=== PATIENT | male | born 1950 | race Two or more races ===

== ENCOUNTER 2021-09-27 01:49 | Inpatient (IN) | payer OTHER ==
[~2021-09-27] VITALS: Ht 170.2 cm; Wt 62.1 kg
[2021-09-27] MEDS ORDERED: methylPREDNISolone SOD SUCC 125 MG/2ML VIAL ONE (02:21)
[2021-09-27] MEDS ORDERED: VANCOMYCIN 1 GM VIAL ONE (02:22)
[2021-09-27] MEDS ORDERED: ALBUTEROL FS 2.5 MG/0.5 ML VIAL.NEB ONE (02:28)
[2021-09-27] MEDS ORDERED: IPRATROPIUM NEB FS 0.5 MG/2.5 ML AMPUL.NEB ONE (02:28)
[2021-09-27] MEDS ORDERED: ALBUTEROL FS 2.5 MG/3 ML VIAL.NEB NEB ONE (02:30)
[2021-09-27] MEDS ORDERED: IPRATROPIUM NEB FS 0.5 MG/2.5 ML AMPUL.NEB NEB ONE (02:30)
[2021-09-27] MEDS ORDERED: VANCOMYCIN 1 GM in IV D5W 250 ML IV ONE (02:30)
[2021-09-27] MEDS ORDERED: methylPREDNISolone SOD SUCC 125 MG/2ML VIAL IV ONE (02:30)
[2021-09-27 02:50] LABS: BASOPHILS # (AUTO) 0.2 K/uL (0.0-0.2); LYMPHOCYTES # (AUTO) 1.9 K/uL (0.8-4.8); NEUTROPHILS # (AUTO) 6.8 K/uL (1.8-8.9); WHITE BLOOD COUNT (AUTO) 11.4 K/uL (4.3-11.0)
[2021-09-27 03:26] LABS: CALCIUM, SERUM 8.3 mg/dL (8.5-10.1); CARBON DIOXIDE 25 mmol/L (21-32); CHLORIDE 105 mmol/L (98-107); CREATININE 0.9 mg/dL (0.6-1.3); GLUCOSE 95 mg/dL (74-106); POTASSIUM 3.6 mmol/L (3.5-5.1); SODIUM SERUM 141 mmol/L (136-145); UREA NITROGEN, BLOOD 13 mg/dL (7-18)
[2021-09-27 03:30] LABS: BASOPHILS % (AUTO) 1.9 % (0.0-2.0); EOSINOPHILS % (AUTO) 15.3 % (0.0-6.0); HEMATOCRIT 31 % (39-51); HEMOGLOBIN 9.6 g/dL (13.5-17.5); LYMPHOCYTES % (AUTO) 16.4 % (20.0-44.0); MEAN CORPUSCULAR HGB CONC 31 g/dl (31.0-36.0); MEAN CORPUSCULAR VOLUME 71 fL (80-96); MONOCYTES # (AUTO) 0.8 K/uL (0.1-1.30); MONOCYTES % (AUTO) 6.9 % (2.0-12.0); NEUTROPHILS % (AUTO) 59.5 % (43.0-81.0); PLATELET COUNT (AUTO) 432 K/uL (150-450); RED BLOOD CELL COUNT(AUTO) 4.41 MIL/uL (4.5-6.0)
[2021-09-27 03:47] LABS: ALANINE AMINOTRANSFERASE 26 U/L (12-78); ALBUMIN 3.4 g/dL (3.4-5.0); ALKALINE PHOSPHATASE 80 U/L (46-116); ASPARTATE AMINOTRANSFERASE 26 U/L (15-37); BILIRUBIN,DIRECT 0.1 mg/dL (0.0-0.2); BILIRUBIN,TOTAL 0.4 mg/dL (0.2-1.0); TOTAL PROTEIN, SERUM 7.5 g/dL (6.4-8.2)
[2021-09-27] MEDS ORDERED: IOHEXOL-350 100 ML VIAL IV ONE (04:39)
[2021-09-27] MEDS ORDERED: IV NS 0.9% 250 ML IV ONE (04:40)
[2021-09-27] MEDS ORDERED: LACT1CAP89 PO (07:24)
[2021-09-27] MEDS ORDERED: AMLO5TAB4 PO (07:24)
[2021-09-27] MEDS ORDERED: MULT-188 PO (07:24)
[2021-09-27] MEDS ORDERED: DOCU-141 PO (07:24)
[2021-09-27] MEDS ORDERED: ALBU8.5H8 IH (07:24)
[2021-09-27] MEDS ORDERED: ACET325T53 PO (07:24)
[2021-09-27 12:39] LABS: EOSINOPHILS % (MANUAL) 10 % (0-4); LYMPHOCYTES % (MANUAL) 18 % (16-48); MONOCYTES % (MANUAL) 8 % (0-11.0); NEUTROPHILS % (MANUAL) 64 (42-76)
[2021-09-27] MEDS ORDERED: ACETAMINOPHEN 325 MG TABLET PO PRN (22:30)
[2021-09-27] MEDS ORDERED: ALBUTEROL FS 2.5 MG/0.5 ML VIAL.NEB NEB PRN (22:30)
[2021-09-27] MEDS ORDERED: IPRATROPIUM NEB FS 0.5 MG/2.5 ML AMPUL.NEB NEB PRN (22:30)
[2021-09-27] MEDS ORDERED: VANCOMYCIN 1.25 GM in IV D5W 250 ML IV ONE (23:00)
[2021-09-28] MEDS ORDERED: CEFTRIAXONE 1GM BAG (ER ONLY) 50 ML IV ONE (00:54)
[2021-09-28] MEDS ORDERED: ENOXAPARIN SODIUM 40 MG/0.4 ML DISP.SYRIN SQ ONE (00:55)
[2021-09-28] MEDS: CEFTRIAXONE 1 G in IV D5W 50 ML IV SCH ×2 (01:00→21:55)
[2021-09-28] MEDS: ENOXAPARIN SODIUM 40 MG/0.4 ML DISP.SYRIN SQ SCH ×2 (01:00→21:55)
[2021-09-28] MEDS ORDERED: AZITHROMYCIN 500 MG VIAL ONE ×2 (01:23→22:21)
[2021-09-28] MEDS: AZITHROMYCIN 500 MG in IV D5W 250 ML IV SCH ×2 (01:30→23:10)
[2021-09-28] MEDS ORDERED: VANCOMYCIN 1 GM VIAL ONE (03:24)
[2021-09-28] MEDS ORDERED: methylPREDNISolone SOD SUCC 40 MG/ML VIAL ONE ×2 (04:55→12:24)
[2021-09-28] MEDS: methylPREDNISolone SOD SUCC 40 MG/ML VIAL IV SCH ×3 (04:59→21:54)
[2021-09-28 05:42] LABS: BASOPHILS % (AUTO) 0.2 % (0.0-2.0); EOSINOPHILS % (AUTO) 0.2 % (0.0-6.0); HEMATOCRIT 31 % (39-51); HEMOGLOBIN 9.4 g/dL (13.5-17.5); LYMPHOCYTES % (AUTO) 5.2 % (20.0-44.0); MEAN CORPUSCULAR HGB CONC 31 g/dl (31.0-36.0); MEAN CORPUSCULAR VOLUME 73 fL (80-96); MONOCYTES # (AUTO) 1.3 K/uL (0.1-1.30); NEUTROPHILS # (AUTO) 16.4 K/uL (1.8-8.9); NEUTROPHILS % (AUTO) 87.4 % (43.0-81.0); PLATELET COUNT (AUTO) 368 K/uL (150-450); RED BLOOD CELL COUNT(AUTO) 4.25 MIL/uL (4.5-6.0); WHITE BLOOD COUNT (AUTO) 18.7 K/uL (4.3-11.0)
[2021-09-28 06:06] LABS: CALCIUM, SERUM 8.1 mg/dL (8.5-10.1); CREATININE 0.9 mg/dL (0.6-1.3); POTASSIUM 3.1 mmol/L (3.5-5.1)
[2021-09-28] MEDS: MULTIVITAMINS,THERAGRAN 1 UDTAB TABLET PO SCH (10:00)
[2021-09-28] MEDS: POTASSIUM CHLORIDE 20 MEQ TAB.PRT.SR PO SCH ×2 (10:00→12:32)
[2021-09-28] MEDS: DOCUSATE SODIUM 100 MG CAPSULE PO SCH (10:00)
[2021-09-28] MEDS: AMLODIPINE BESYLATE 5 MG TABLET PO SCH (10:00)
[2021-09-28] MEDS: LACTOBACILLUS RHAMNOSUS GG 1 EACH CAP.SPRINK PO SCH (10:00)
[2021-09-28] MEDS ORDERED: AMLODIPINE BESYLATE 5 MG TABLET ONE (12:23)
[2021-09-28] MEDS ORDERED: POTASSIUM CHLORIDE 20 MEQ TAB.PRT.SR PO ONE ×2 (12:24→12:32)
[2021-09-28] MEDS ORDERED: DOCUSATE SODIUM 100 MG CAPSULE PO ONE (12:24)
[2021-09-28] MEDS ORDERED: MULTIVIT W/MINERALS 1 TAB TABLET ONE (12:25)
[2021-09-28] MEDS: VANCOMYCIN 1 GM in IV D5W 250 ML IV SCH (16:00)
[2021-09-28] MEDS ORDERED: CEFTRIAXONE 1 G VIAL ONE ×2 (21:28→22:22)
[2021-09-28] MEDS ORDERED: GUAIFENESIN LA 600 MG TABLET.SA PO ONE (22:02)
[2021-09-28] MEDS: GUAIFENESIN LA 600 MG TABLET.SA PO SCH (22:06)
[2021-09-29] VITALS: BP 140/80
[2021-09-29] MEDS ORDERED: VANCOMYCIN 1 GM VIAL ONE (01:43)
[2021-09-29] MEDS: VANCOMYCIN 1 GM in IV D5W 250 ML IV SCH (02:22)
[2021-09-29 04:00] VITALS: BP 119/74
[2021-09-29] MEDS: methylPREDNISolone SOD SUCC 40 MG/ML VIAL IV SCH ×2 (05:03→12:11)
[2021-09-29 08:00] VITALS: BP 139/80
[2021-09-29] MEDS: LACTOBACILLUS RHAMNOSUS GG 1 EACH CAP.SPRINK PO SCH (09:03)
[2021-09-29] MEDS: DOCUSATE SODIUM 100 MG CAPSULE PO SCH (09:04)
[2021-09-29] MEDS: MULTIVITAMINS,THERAGRAN 1 UDTAB TABLET PO SCH (09:04)
[2021-09-29] MEDS: GUAIFENESIN LA 600 MG TABLET.SA PO SCH (09:04)
[2021-09-29] MEDS: AMLODIPINE BESYLATE 5 MG TABLET PO SCH (09:04)
[2021-09-29 09:28] LABS: CALCIUM, SERUM 7.9 mg/dL (8.5-10.1); POTASSIUM 3.9 mmol/L (3.5-5.1)
[2021-09-29] MEDS ORDERED: AMOX-430 PO (11:40)
[2021-09-29 16:00] VITALS: BP 147/82
== END 2021-09-29 19:45 | DRG 202 ==
LOC: ER 01:54 → MEDSG1 19:20 → TRANSITION 09-28 00:29 → MEDSG2 09-28 19:50
PROVIDERS: ADMIT Internal Medicine; ATTEND Internal Medicine
DX: J20.9 Acute bronchitis, unspecified (principal); J44.0 Chronic obstructive pulmonary disease with (acute) lower respiratory infection; L03.116 Cellulitis of left lower limb; I10 Essential (primary) hypertension; Z20.822 Contact with and (suspected) exposure to COVID-19; K44.9 Diaphragmatic hernia without obstruction or gangrene
CPT/HCPCS: 36415; 71045-TC; 80048-TC; 80076-TC; 80202-TC; 83880; 84484-TC; 85025-TC; 85378-TC; 87040-TC; 87081-TC; 93970-TC; C9803; G0378; J0456; J0696; J1650; J2920; J2930; J3370; J7030; J7050; J7060; Q9967

== ENCOUNTER 2021-10-31 14:49 | Emergency (ER) | payer OTHER ==
[~2021-10-31] VITALS: Ht 167.6 cm; Wt 63.5 kg
[~2021-10-31 14:49] MED LIST: ACET325T53 PO; AMLO5TAB4 PO; AMOX-430 PO; DOCU-141 PO; LACT1CAP89 PO; MULT-188 PO
--- NOTE | 2021-10-31 15:02 | NUR ---
TO ER BED 12, C/O BIBPA FROM [facility] C/O LT HIP, LT WRIST & LT LEG PAIN -TRAUMA, CONNECTED TO MONITOR, AWAITING MD MAZARIEGOS
[2021-10-31] MEDS ORDERED: ACETAMINOPHEN ES 500 MG TABLET PO ONE (16:30)
[2021-10-31] MEDS ORDERED: CLINDAMYCIN HCL 150 MG CAPSULE PO ONE (16:30)
[2021-10-31] MEDS ORDERED: CLINDAMYCIN HCL 150 MG CAPSULE ONE (16:55)
[2021-10-31] MEDS ORDERED: ACETAMINOPHEN ES 500 MG TABLET ONE (16:55)
[2021-10-31] MEDS ORDERED: CLIN300C12 PO (17:11)
--- NOTE | 2021-10-31 17:39 | NUR ---
[facility] TRANS PORT IS AT 1900
--- NOTE | 2021-10-31 19:37 | NUR ---
Written and verbal after care instructions given. Patient verbalizes understanding of instruction. VSS
--- NOTE | 2021-10-31 20:17 | NUR ---
REPORT GIVEN TO EMS AT BEDSIDE
[2021-10-31 22:16] VITALS: BP 131/70
== END 2021-10-31 20:20 | disposition home or self-care (01) ==
LOC: ER 14:51
DX: M16.12 Unilateral primary osteoarthritis, left hip (principal); L03.116 Cellulitis of left lower limb; R60.0 Localized edema; I10 Essential (primary) hypertension; J44.9 Chronic obstructive pulmonary disease, unspecified; Z79.1 Long term (current) use of non-steroidal anti-inflammatories (NSAID); Z79.899 Other long term (current) drug therapy
CPT/HCPCS: 73110; 73502

== ENCOUNTER 2021-12-01 09:01 | Emergency (ER) | payer OTHER ==
[~2021-12-01] VITALS: Ht 167.6 cm; Wt 63.0 kg
[~2021-12-01 09:01] MED LIST changes: +CLIN300C12 PO
--- NOTE | 2021-12-01 09:05 | NUR ---
BIBA THIS 71YO MALE PATIENT PER ARTHUR WITH CC OF SOB, WHEEZING AND COUGHING WITH WHITISH SPUTUM. PLACED COMFORTABLY ON BED. VITALS CHECKED. PT ALERT, ORIENTED X4.
--- NOTE | 2021-12-01 09:05 | NUR ---
EKG DONE AT BEDSIDE
--- NOTE | 2021-12-01 09:06 | NUR ---
SEEN BY DR GUILLERMO AT BEDSIDE
--- NOTE | 2021-12-01 09:10 | NUR ---
IV CANNULA G18 INSERTED LEFT AC, BLOOD DRAWN AND SENT TO CONTRACT DRIVER
[2021-12-01] MEDS ORDERED: ALBUTEROL FS 2.5 MG/0.5 ML VIAL.NEB ONE ×3 (09:11→13:45)
--- NOTE | 2021-12-01 09:20 | NUR ---
PT HAS TIGHT AIR ENTRY ON BOTH LUNGS + WHEEZING. RT NEBULIZED PATIENT AND PUT PATIENT IN OXYGEN
[2021-12-01] MEDS ORDERED: MULT-24 PO (09:24)
[2021-12-01] MEDS ORDERED: LACT1CAP71 PO (09:24)
--- NOTE | 2021-12-01 09:25 | NUR ---
COVID SWAB DONE
[2021-12-01] MEDS ORDERED: ALBU8.5H8 IH (09:27)
[2021-12-01] MEDS ORDERED: ALBUTEROL FS 2.5 MG/0.5 ML VIAL.NEB NEB ONE ×2 (09:30→12:00)
[2021-12-01 09:36] LABS: BASOPHILS # (AUTO) 0.2 K/uL (0.0-0.2); BASOPHILS % (AUTO) 2.9 % (0.0-2.0); EOSINOPHILS % (AUTO) 20.1 % (0.0-6.0); HEMATOCRIT 34 % (39-51); HEMOGLOBIN 10.4 g/dL (13.5-17.5); LYMPHOCYTES # (AUTO) 1.7 K/uL (0.8-4.8); LYMPHOCYTES % (AUTO) 19.8 % (20.0-44.0); MEAN CORPUSCULAR HGB CONC 31 g/dl (31.0-36.0); MEAN CORPUSCULAR VOLUME 70 fL (80-96); MONOCYTES # (AUTO) 0.8 K/uL (0.1-1.30); MONOCYTES % (AUTO) 9.1 % (2.0-12.0); NEUTROPHILS # (AUTO) 4.2 K/uL (1.8-8.9); NEUTROPHILS % (AUTO) 48.1 % (43.0-81.0); PLATELET COUNT (AUTO) 453 K/uL (150-450); RED BLOOD CELL COUNT(AUTO) 4.82 MIL/uL (4.5-6.0); WHITE BLOOD COUNT (AUTO) 8.7 K/uL (4.3-11.0)
--- NOTE | 2021-12-01 09:45 | NUR ---
Jarrod schumacher in ED - 12/01/21 at 1105 by DESTINI CALLED [facility] REGARDING PT ADMISSION STATUS. WAS NOTIFIED THAT THE PT'S CLINICALS WERE SENT TO [facility] AND AWAITING FEEDBACK FROM CHARGE NURSE
[2021-12-01 10:01] LABS: CALCIUM, SERUM 8.8 mg/dL (8.5-10.1); CARBON DIOXIDE 28 mmol/L (21-32); CHLORIDE 104 mmol/L (98-107); CREATININE 0.8 mg/dL (0.6-1.3); GLUCOSE 104 mg/dL (74-106); POTASSIUM 4.4 mmol/L (3.5-5.1); SODIUM SERUM 139 mmol/L (136-145); UREA NITROGEN, BLOOD 16 mg/dL (7-18)
--- NOTE | 2021-12-01 10:02 | NUR ---
CXR DONE AT BEDSIDE
--- NOTE | 2021-12-01 10:08 | NUR ---
SPOKE TO NELIDA WILSON
[2021-12-01 10:12] LABS: BASOPHILS % (MANUAL) 1 % (0.0-2.0); EOSINOPHILS % (MANUAL) 24 % (0-4); LYMPHOCYTES % (MANUAL) 27 % (16-48); MONOCYTES % (MANUAL) 8 % (0-11.0); NEUTROPHILS % (MANUAL) 40 (42-76)
--- NOTE | 2021-12-01 10:12 | NUR ---
[facility] TEL# [phone] FAX# [phone]
[2021-12-01 10:16] LABS: ALANINE AMINOTRANSFERASE 29 U/L (12-78); ALBUMIN 3.5 g/dL (3.4-5.0); ALKALINE PHOSPHATASE 79 U/L (46-116); ASPARTATE AMINOTRANSFERASE 23 U/L (15-37); BILIRUBIN,DIRECT 0.1 mg/dL (0.0-0.2); BILIRUBIN,TOTAL 0.4 mg/dL (0.2-1.0); TOTAL PROTEIN, SERUM 7.5 g/dL (6.4-8.2)
--- NOTE | 2021-12-01 11:30 | NUR ---
NOVEL GAVIRIA SWAB PCR SENT TO LAB
[2021-12-01] MEDS ORDERED: methylPREDNISolone SOD SUCC 125 MG/2ML VIAL IV ONE (12:00)
[2021-12-01] MEDS ORDERED: LEVOFLOXACIN 750 MG /D5W 150ML PIGGYBACK IV ONE (12:00)
--- NOTE | 2021-12-01 12:17 | NUR ---
URINE SPECIMEN GIVEN TO THEATRE DIRECTOR
[2021-12-01] MEDS ORDERED: methylPREDNISolone SOD SUCC 125 MG/2ML VIAL ONE (12:20)
[2021-12-01] MEDS ORDERED: LEVOFLOXACIN 750 MG /D5W 150ML 150 ML IV ONE (12:20)
[2021-12-01 12:51] LABS: BILIRUBIN,URINE NEGATIVE (NEGATIVE); COLOR,URINE YELLOW (YELLOW); LEUKOCYTE ESTERASE ,URINE NEGATIVE (NEGATIVE); NITRITE, URINE NEGATIVE (NEGATIVE); PH,URINE 7.5 (5.0-8.0); PROTEIN,URINE NEGATIVE (NEGATIVE); UGLUCOSE NEGATIVE (NEGATIVE); UROBILINOGEN,URINE 0.2 EU/dL (0.2)
[2021-12-01 13:03] LABS: BACTERIA,URINE None seen /HPF (None Seen); RBC,URINE 0-2 /HPF (0-2); SQUAMOUS EPITHELIAL CELL,UR Rare /HPF (None Seen); WBC,URINE 0-2 /HPF (0-3)
--- NOTE | 2021-12-01 13:29 | NUR ---
CALL FROM [facility], GOING TO [facility] ROOM 608,REPORT TO [phone]
[2021-12-01 13:30] VITALS: BP 159/101
--- NOTE | 2021-12-01 13:30 | NUR ---
CALLED [facility] AND SET UP BLS TRANSPORT ETA 1400
--- NOTE | 2021-12-01 14:00 | NUR ---
REPORT GIVEN TO [facility] TECH JULIA ([address]) RUN #[id number]. PATIENT WILL BE GOING TO [facility] RM 608. ENDORSEMENT DONE TO NURSE RAY. PATIENT WAS ALERT, ORIENTED X4. TRANSFERRED VIA GURNEY ON RA AT 96%.
== END 2021-12-01 14:18 | disposition short-term general hospital (02) ==
LOC: ER 09:02
DX: J44.0 Chronic obstructive pulmonary disease with (acute) lower respiratory infection (principal); J20.9 Acute bronchitis, unspecified; Z20.822 Contact with and (suspected) exposure to COVID-19; I10 Essential (primary) hypertension; R60.0 Localized edema; L03.116 Cellulitis of left lower limb; L03.115 Cellulitis of right lower limb
CPT/HCPCS: 36415; 71045; 80048; 80076; 81001; 83605; 83880; 84145; 84484 ×3; 85007; 85025; 85730; 86850; 87040 ×2; 87086; 87426; 93005; 94640 ×3; 94799; 96365; 96375; 99285; J1956; J2930; C9803; U0003

== ENCOUNTER 2022-01-10 07:39 | Emergency (ER) | payer OTHER ==
[~2022-01-10] VITALS: Ht 167.6 cm; Wt 48.1 kg
[~2022-01-10 07:39] MED LIST changes: +ALBU8.5H8 IH; -AMOX-430 PO; -CLIN300C12 PO; +LACT1CAP71 PO; -LACT1CAP89 PO; -MULT-188 PO; +MULT-24 PO
[2022-01-10] MEDS ORDERED: methylPREDNISolone SOD SUCC 125 MG/2ML VIAL ONE (08:07)
[2022-01-10] MEDS ORDERED: IPRATROPIUM NEB FS 0.5 MG/2.5 ML AMPUL.NEB ONE (08:24)
[2022-01-10] MEDS ORDERED: ALBUTEROL FS 2.5 MG/3 ML VIAL.NEB ONE (08:24)
[2022-01-10] MEDS ORDERED: ALBUTEROL FS 2.5 MG/3 ML VIAL.NEB CONTNEB ONE (08:30)
[2022-01-10] MEDS ORDERED: methylPREDNISolone SOD SUCC 125 MG/2ML VIAL IV ONE (08:30)
[2022-01-10] MEDS ORDERED: IPRATROPIUM NEB FS 0.5 MG/2.5 ML AMPUL.NEB NEB ONE (08:30)
[2022-01-10 08:31] LABS: BASOPHILS # (AUTO) 0.2 K/uL (0.0-0.2); EOSINOPHILS % (AUTO) 6.3 % (0.0-6.0); HEMATOCRIT 36 % (39-51); LYMPHOCYTES # (AUTO) 1.1 K/uL (0.8-4.8); LYMPHOCYTES % (AUTO) 11.7 % (20.0-44.0); MEAN CORPUSCULAR HGB CONC 31 g/dl (31.0-36.0); MEAN CORPUSCULAR VOLUME 73 fL (80-96); MONOCYTES # (AUTO) 0.9 K/uL (0.1-1.30); MONOCYTES % (AUTO) 10.4 % (2.0-12.0); NEUTROPHILS # (AUTO) 6.3 K/uL (1.8-8.9); NEUTROPHILS % (AUTO) 69.6 % (43.0-81.0); PLATELET COUNT (AUTO) 347 K/uL (150-450); RED BLOOD CELL COUNT(AUTO) 4.93 MIL/uL (4.5-6.0); WHITE BLOOD COUNT (AUTO) 9.1 K/uL (4.3-11.0)
[2022-01-10 08:58] LABS: ALANINE AMINOTRANSFERASE 21 U/L (12-78); ALBUMIN 3.8 g/dL (3.4-5.0); ALKALINE PHOSPHATASE 88 U/L (46-116); ASPARTATE AMINOTRANSFERASE 17 U/L (15-37); BILIRUBIN,DIRECT 0.1 mg/dL (0.0-0.2); BILIRUBIN,TOTAL 0.3 mg/dL (0.2-1.0); CALCIUM, SERUM 8.8 mg/dL (8.5-10.1); CARBON DIOXIDE 25 mmol/L (21-32); CHLORIDE 108 mmol/L (98-107); GLUCOSE 113 mg/dL (74-106); POTASSIUM 4.1 mmol/L (3.5-5.1); SODIUM SERUM 144 mmol/L (136-145); TOTAL PROTEIN, SERUM 7.6 g/dL (6.4-8.2); UREA NITROGEN, BLOOD 19 mg/dL (7-18)
[2022-01-10] MEDS ORDERED: ALBU18HF2 INH (10:25)
[2022-01-10] MEDS ORDERED: PRED20TA PO (10:25)
[2022-01-10 10:52] LABS: BAND % (MANUAL) 2 % (0.0-5.0); EOSINOPHILS % (MANUAL) 5 % (0-4); LYMPHOCYTES % (MANUAL) 7 % (16-48); MONOCYTES % (MANUAL) 8 % (0-11.0); NEUTROPHILS % (MANUAL) 78 (42-76)
[2022-01-10 12:14] VITALS: BP 121/90
== END 2022-01-10 12:32 ==
LOC: ER 07:44
DX: J44.9 Chronic obstructive pulmonary disease, unspecified (principal); R60.0 Localized edema; Z20.822 Contact with and (suspected) exposure to COVID-19; D50.9 Iron deficiency anemia, unspecified; Z79.899 Other long term (current) drug therapy; I10 Essential (primary) hypertension
CPT/HCPCS: 36415; 71045; 80048; 80076; 83880; 84484; 85007; 85025; 87426; 93005; 93970; 94644; 96374; 99285; J2930; C9803

== ENCOUNTER 2022-01-11 00:25 | Emergency (ER) | payer OTHER ==
[~2022-01-11] VITALS: Ht 170.2 cm; Wt 65.8 kg
[~2022-01-11 00:25] MED LIST changes: +ALBU18HF2 INH; +PRED20TA PO
--- NOTE | 2022-01-11 00:30 | NUR ---
ECPSC196 FROM HOME C/O SOB WITH COUGH AND MUCUS X1DAY. 1NEB TX GIVEN CLASSROOM AIDE WITH SOME RELIEF. PT A/OX3 TOLERATING R/A WELL WITH NO SOB
--- NOTE | 2022-01-11 00:37 | NUR ---
DR. LAW MURPHY AT PT'S BEDSIDE
--- NOTE | 2022-01-11 00:45 | NUR ---
PUBLIC ADDRESS ANNOUNCER AT PT'S BEDSIDE
[2022-01-11] MEDS ORDERED: Magnesium 1GM/D5W 100ML PREMIX 100 ML IV ONE (01:05)
[2022-01-11] MEDS ORDERED: methylPREDNISolone SOD SUCC 125 MG/2ML VIAL ONE (01:05)
[2022-01-11 01:19] LABS: BASOPHILS % (AUTO) 0.2 % (0.0-2.0); HEMATOCRIT 34 % (39-51); HEMOGLOBIN 10.5 g/dL (13.5-17.5); LYMPHOCYTES # (AUTO) 0.6 K/uL (0.8-4.8); LYMPHOCYTES % (AUTO) 9.8 % (20.0-44.0); MEAN CORPUSCULAR HGB CONC 31 g/dl (31.0-36.0); MEAN CORPUSCULAR VOLUME 72 fL (80-96); MONOCYTES # (AUTO) 0.3 K/uL (0.1-1.30); MONOCYTES % (AUTO) 4.3 % (2.0-12.0); NEUTROPHILS # (AUTO) 5.7 K/uL (1.8-8.9); NEUTROPHILS % (AUTO) 85.7 % (43.0-81.0); PLATELET COUNT (AUTO) 338 K/uL (150-450); RED BLOOD CELL COUNT(AUTO) 4.63 MIL/uL (4.5-6.0); WHITE BLOOD COUNT (AUTO) 6.6 K/uL (4.3-11.0)
--- NOTE | 2022-01-11 01:23 | NUR ---
RFA #18G S/L; PATENT AND INTACT. BLOOD COLLECTED AND SEND TO LAB
--- NOTE | 2022-01-11 01:24 | NUR ---
RT CALLED FOR BREATHING TX
[2022-01-11 01:30] LABS: CALCIUM, SERUM 8.8 mg/dL (8.5-10.1); CARBON DIOXIDE 22 mmol/L (21-32); CHLORIDE 106 mmol/L (98-107); CREATININE 1.1 mg/dL (0.6-1.3); GLUCOSE 161 mg/dL (74-106); POTASSIUM 3.9 mmol/L (3.5-5.1); SODIUM SERUM 141 mmol/L (136-145); UREA NITROGEN, BLOOD 30 mg/dL (7-18)
[2022-01-11] MEDS ORDERED: ALBUTEROL FS 2.5 MG/3 ML VIAL.NEB NEB ONE (01:30)
[2022-01-11] MEDS ORDERED: methylPREDNISolone SOD SUCC 125 MG/2ML VIAL IV ONE (01:30)
[2022-01-11] MEDS ORDERED: Magnesium 1GM/D5W 100ML PREMIX 200 ML IV ONE (01:30)
[2022-01-11] MEDS ORDERED: ALBUTEROL FS 2.5 MG/3 ML VIAL.NEB ONE (01:30)
[2022-01-11] MEDS ORDERED: IV NS 0.9% 1,000 ML BAG IV ONE (01:30)
[2022-01-11] MEDS ORDERED: IPRATROPIUM NEB FS 0.5 MG/2.5 ML AMPUL.NEB NEB ONE (01:30)
[2022-01-11] MEDS ORDERED: IPRATROPIUM NEB FS 0.5 MG/2.5 ML AMPUL.NEB ONE (01:30)
--- NOTE | 2022-01-11 01:31 | NUR ---
RT AT BEDSIDE
--- NOTE | 2022-01-11 01:43 | NUR ---
RT ER CALLED FOR NEB TX, TX GIVEN WITH NO ADVERSE REACTIONS NOTED.
--- NOTE | 2022-01-11 02:20 | NUR ---
COVID SWAB COLLECTED AND SENT TO LAB
--- NOTE | 2022-01-11 04:42 | NUR ---
PT ACCEPTED TO [facility] BED [address]. ADMITTING DR. AUGUSTINE REPORT NUMBER [phone]
--- NOTE | 2022-01-11 05:03 | NUR ---
REPORT GIVEN TO FELIPA WALKER FROM [facility] FOR [facility]
[2022-01-11 07:07] LABS: LYMPHOCYTES % (MANUAL) 8 % (16-48); MONOCYTES % (MANUAL) 4 % (0-11.0); NEUTROPHILS % (MANUAL) 88 (42-76)
[2022-01-11 07:15] VITALS: BP 147/88
--- NOTE | 2022-01-11 07:20 | NUR ---
[facility] AT BEDSIDE FOR TRANSPORT TO [facility] IN STABLE CONDITION. NAD NOTED. PT LEFT WITH 2 EMT AND REPORT GIVEN.
== END 2022-01-11 07:47 | disposition short-term general hospital (02) ==
LOC: ER 00:34
DX: J44.1 Chronic obstructive pulmonary disease with (acute) exacerbation (principal); R06.09 Other forms of dyspnea; Z20.822 Contact with and (suspected) exposure to COVID-19; I10 Essential (primary) hypertension; R60.0 Localized edema
CPT/HCPCS: 36415; 71045; 80048; 85007; 85025; 87426; 94640; 96365; 96375; 99291; J2930; J3475; J7030; C9803

== ENCOUNTER 2022-11-22 06:24 | Emergency (ER) | payer OTHER ==
[~2022-11-22] VITALS: Ht 170.2 cm; Wt 65.8 kg
[2022-11-22] MEDS ORDERED: LORATADINE 10 MG TABLET ONE (06:50)
[2022-11-22] MEDS ORDERED: predniSONE 20 MG TABLET ONE (06:50)
--- NOTE | 2022-11-22 06:57 | NUR ---
BIBRA 60 FROM [facility] C/O COUGH AND FEELING SICK FOR THE PAST DAY. AWAKE AND ALERT BREATHING UNLABORED. V/S WNL 98% RA.
[2022-11-22] MEDS ORDERED: predniSONE 20 MG TABLET PO ONE (07:00)
[2022-11-22] MEDS ORDERED: ALBUTEROL FS 2.5 MG/3 ML VIAL.NEB CONTNEB ONE (07:00)
[2022-11-22] MEDS ORDERED: LORATADINE 10 MG TABLET PO SCH (07:00)
[2022-11-22] MEDS ORDERED: IPRATROPIUM NEB FS 0.5 MG/2.5 ML AMPUL.NEB NEB ONE (07:00)
[2022-11-22] MEDS ORDERED: ALBUTEROL FS 2.5 MG/3 ML VIAL.NEB ONE (07:02)
[2022-11-22] MEDS ORDERED: IPRATROPIUM NEB FS 0.5 MG/2.5 ML AMPUL.NEB ONE (07:02)
[2022-11-22 07:14] LABS: BASOPHILS # (AUTO) 0.1 K/uL (0.0-0.2); HEMATOCRIT 37 % (39-51); HEMOGLOBIN 11.6 g/dL (13.5-17.5); LYMPHOCYTES # (AUTO) 1.1 K/uL (0.8-4.8); LYMPHOCYTES % (AUTO) 13.7 % (20.0-44.0); MEAN CORPUSCULAR HGB CONC 32 g/dl (31.0-36.0); MEAN CORPUSCULAR VOLUME 81 fL (80-96); MONOCYTES # (AUTO) 0.8 K/uL (0.1-1.30); MONOCYTES % (AUTO) 9.3 % (2.0-12.0); NEUTROPHILS # (AUTO) 5.2 K/uL (1.8-8.9); PLATELET COUNT (AUTO) 273 K/uL (150-450); RED BLOOD CELL COUNT(AUTO) 4.52 MIL/uL (4.5-6.0); WHITE BLOOD COUNT (AUTO) 8.3 K/uL (4.3-11.0)
[2022-11-22 07:20] LABS: POTASSIUM 3.7 mmol/L (3.5-5.1)
[2022-11-22] MEDS ORDERED: LORA10TA68 PO (08:01)
[2022-11-22] MEDS ORDERED: PRED50TA PO (08:01)
--- NOTE | 2022-11-22 08:10 | NUR ---
CALLED [facility] FOR TRANSPORT ETA 60 MINS.
--- NOTE | 2022-11-22 09:08 | NUR ---
[facility] AT BEDSIDE FOR PICKUP.
--- NOTE | 2022-11-22 09:16 | NUR ---
Patient discharged to facility in stable condition via [facility]. Written and verbal after care instructions given. Patient verbalizes understanding of instruction.
[2022-11-22 09:17] VITALS: BP 118/68
== END 2022-11-22 09:18 ==
LOC: ER 06:27
DX: J06.9 Acute upper respiratory infection, unspecified (principal); J44.1 Chronic obstructive pulmonary disease with (acute) exacerbation; R05.9 Cough, unspecified; R09.81 Nasal congestion; I10 Essential (primary) hypertension; Z20.822 Contact with and (suspected) exposure to COVID-19; Z79.51 Long term (current) use of inhaled steroids; Z79.899 Other long term (current) drug therapy
CPT/HCPCS: 99285; 71045; 87426; 85025; 80048; 36415; 94640; J7512; C9803

== ENCOUNTER 2023-02-11 05:25 | Inpatient (IN) | payer OTHER ==
[~2023-02-11] VITALS: Ht 167.6 cm; Wt 66.2 kg
[~2023-02-11 05:25] MED LIST changes: +LORA10TA68 PO; +PRED50TA PO
[2023-02-11] MEDS ORDERED: ALBUTEROL FS 2.5 MG/3 ML VIAL.NEB CONTNEB ONE ×2 (05:30→08:00)
[2023-02-11] MEDS ORDERED: IPRATROPIUM NEB FS 0.5 MG/2.5 ML AMPUL.NEB NEB ONE ×2 (05:30→08:00)
[2023-02-11] MEDS ORDERED: methylPREDNISolone SOD SUCC 125 MG/2ML VIAL IV ONE (05:30)
--- NOTE | 2023-02-11 05:32 | NUR ---
RT AT BEDSIDE
--- NOTE | 2023-02-11 05:32 | NUR ---
BIBRA60 FRM FOURSNS FOR SOB, O2SAT 90% ROOM AIR, 5 ALBUTEROL GIVEN MOTOR VEHICLE TECHNICIAN NOW 95%ROOM AIR. PT AAOX4, VITALS CHECKED.
--- NOTE | 2023-02-11 05:41 | NUR ---
BLOOD COLLECTED AND SENT TO LAB
[2023-02-11] MEDS ORDERED: methylPREDNISolone SOD SUCC 125 MG/2ML VIAL ONE (05:46)
--- NOTE | 2023-02-11 05:50 | NUR ---
XR AT BEDSIDE
--- NOTE | 2023-02-11 05:55 | NUR ---
DATE NIGHT CAREGIVER AT PT'S BEDSIDE
--- NOTE | 2023-02-11 05:58 | NUR ---
COVID SWAB COLLECTED, SENT TO LAB
[2023-02-11 05:59] LABS: BASOPHILS # (AUTO) 0.1 K/uL (0.0-0.2); BASOPHILS % (AUTO) 1.9 % (0.0-2.0); EOSINOPHILS % (AUTO) 12.6 % (0.0-6.0); HEMATOCRIT 39 % (39-51); HEMOGLOBIN 12.8 g/dL (13.5-17.5); LYMPHOCYTES # (AUTO) 1.9 K/uL (0.8-4.8); LYMPHOCYTES % (AUTO) 25.2 % (20.0-44.0); MEAN CORPUSCULAR HGB CONC 33 g/dl (31.0-36.0); MEAN CORPUSCULAR VOLUME 82 fL (80-96); MONOCYTES # (AUTO) 0.6 K/uL (0.1-1.30); MONOCYTES % (AUTO) 8.1 % (2.0-12.0); NEUTROPHILS % (AUTO) 52.2 % (43.0-81.0); PLATELET COUNT (AUTO) 287 K/uL (150-450); RED BLOOD CELL COUNT(AUTO) 4.81 MIL/uL (4.5-6.0); WHITE BLOOD COUNT (AUTO) 7.7 K/uL (4.3-11.0)
--- NOTE | 2023-02-11 06:06 | NUR ---
EKG DONE AT BEDSIDE
--- NOTE | 2023-02-11 06:20 | NUR ---
BLOOD CULTURE COLLECTED, SENT TO LAB
[2023-02-11 06:21] LABS: ALANINE AMINOTRANSFERASE 27 U/L (12-78); ALKALINE PHOSPHATASE 89 U/L (46-116); ASPARTATE AMINOTRANSFERASE 20 U/L (15-37); BILIRUBIN,DIRECT 0.1 mg/dL (0.0-0.2); BILIRUBIN,TOTAL 0.4 mg/dL (0.2-1.0); CALCIUM, SERUM 9.4 mg/dL (8.5-10.1); CARBON DIOXIDE 23 mmol/L (21-32); CHLORIDE 106 mmol/L (98-107); CREATININE 1.2 mg/dL (0.6-1.3); GLUCOSE 105 mg/dL (74-106); POTASSIUM 3.4 mmol/L (3.5-5.1); SODIUM SERUM 142 mmol/L (136-145); TOTAL PROTEIN, SERUM 7.6 g/dL (6.4-8.2); UREA NITROGEN, BLOOD 34 mg/dL (7-18)
[2023-02-11] MEDS ORDERED: IPRATROPIUM NEB FS 0.5 MG/2.5 ML AMPUL.NEB ONE ×2 (06:23→08:15)
[2023-02-11] MEDS ORDERED: ALBUTEROL FS 2.5 MG/3 ML VIAL.NEB ONE ×2 (06:23→08:15)
--- NOTE | 2023-02-11 06:30 | NUR ---
MOVE SHEET SUBMITTED.
--- NOTE | 2023-02-11 09:11 | NUR ---
GEORGIE KRAUSE MAY GAVE AUTH FOR THE PT TO BE ADMITTED HERE PER ADMITTING DEPARTMENT
[2023-02-11] MEDS ORDERED: ACETAMINOPHEN 325 MG TABLET PO PRN (10:00)
[2023-02-11] MEDS ORDERED: ALBUTEROL FS 2.5 MG/0.5 ML VIAL.NEB NEB PRN (10:00)
[2023-02-11] MEDS ORDERED: ALBUTEROL FS 2.5 MG/0.5 ML VIAL.NEB NEB SCH (10:00)
[2023-02-11] MEDS ORDERED: LEVOFLOXACIN 500 MG /D5W 100ML 500 MG in PREMIX 1 EA IV SCH (10:00)
[2023-02-11] MEDS ORDERED: LORATADINE 10 MG TABLET PO PRN (10:00)
[2023-02-11] MEDS ORDERED: IPRATROPIUM NEB FS 0.5 MG/2.5 ML AMPUL.NEB NEB SCH (10:00)
[2023-02-11] MEDS ORDERED: POTASSIUM CHLORIDE 20 MEQ TAB.PRT.SR PO ONE ×2 (10:00→18:00)
--- NOTE | 2023-02-11 10:26 | NUR ---
BED GIVEN 307-2
--- NOTE | 2023-02-11 10:32 | NUR ---
report given to alicia for red
--- NOTE | 2023-02-11 11:10 | NUR ---
PT TRANSFERRED TO TELEL FLOOR WITH [facility] PROTOCOLS IN PLACE.
--- NOTE | 2023-02-11 11:20 | NUR ---
MS/COORDINATOR SKILL TRAINING PROGRAMBOBBIN COLLECTOR NOTES: RECEIVED PATIENT FROM ER VIA [facility]. PATIENT IS A/O X4, ABLETO Addendum: 02/11/23 at 1444 by EVA LANGE RN MS/COORDINATOR SKILL TRAINING PROGRAMBOBBIN COLLECTOR NOTES: RECEIVED PATIENT FROM ER VIA [facility]. PATIENT IS A/O X4, ABLE TO MAKE NEEDS KNOWN. PATIENT ORIENTED TO ROOM AND HOW TO USE THE CALL LIGHT. O2 AT 1L/HR, BREATHING EVENLY AND UNLABORED. NO SOB, WITH NON PRODUCTIVE COUGH. ALL BELONGINGS ACCOUNTED FOR, BELONGINGS SHEET SIGNED. IV ACCESS ON LAC G20 SL, INTACT AND PATENT. VS TAKEN FOLLOWS: BP132/67, HR 100, RR 18, TEMP98.4, SPO2 93%. SKIN ASSESSMENT DONE, PHOTOS TAKEN AND PLACED IN CHART. WHEEZING NOTED ON LUNGS UPON AUSCULTATION. BOWEL SOUNDS PRESENT. NO COMPLAINTS OF PAIN. SAFETY PRECAUTIONS IN PLACE: BED IN LOW, LOCKED POSITION; SIDE RAILS UPX2; CALL LIGHT WITHIN REACH. WILL CONTINUE TO MONITOR.
[2023-02-11] MEDS ORDERED: FLUT16SP16 (11:28)
[2023-02-11] MEDS ORDERED: MONT10TA22 PO (11:28)
[2023-02-11] MEDS ORDERED: FURO-144 PO (11:28)
[2023-02-11] MEDS ORDERED: BECL10.6 IH (11:28)
[2023-02-11] MEDS ORDERED: LOSA100T31 PO (11:28)
[2023-02-11] MEDS ORDERED: TIOT4MIS5 IH (11:28)
--- NOTE | 2023-02-11 11:50 | NUR ---
RN NOTES: PATIENT'S 10AM MEDS GIVEN AROUND 1150. RECEIEVD PT 1120AM IN MEDSURG UNIT.
[2023-02-11] MEDS: DOXYCYCLINE HYCLATE (100 MG) 100 MG TABLET PO SCH ×2 (12:05→17:59)
[2023-02-11] MEDS: methylPREDNISolone SOD SUCC 40 MG/ML VIAL IV SCH ×2 (12:05→17:59)
[2023-02-11] MEDS: ENOXAPARIN SODIUM 40 MG/0.4 ML DISP.SYRIN SQ SCH (12:06)
--- NOTE | 2023-02-11 12:36 | NUR ---
RN NOTES: HOME MEDS 2 INHALAERS SENT TO PHARMACY.
[2023-02-11 16:00] VITALS: BP_SYST 117; BP_SYST 149; BP_DIAS 69; BP_DIAS 87
--- NOTE | 2023-02-11 17:52 | NUR ---
RN NOTES: RELAYED POTASSIUM LEVEL 3.4. DR. PRINGLE MADE AWARE AND ORDERED POTASSIUM CHLORIDE 40MEQ PO ONCE. ORDERS NOTED AND CARRIED OUT.
--- NOTE | 2023-02-11 17:56 | NUR ---
RN NOTES: ILANA ROMANULE 40MEQS PO ONCE, REPLACED IN ER.
--- NOTE | 2023-02-11 19:14 | NUR ---
MS/AUTOMOTIVE INTERNET SALES MANAGER CLOSING NOTES: PT AWAKE IN BED, ALERT AND ORIENTED X4. ABLE TO MAKE NEEDS KNOWN,NO SOB DENIES ANY PAIN AT THIS TIME. AFEBRILE. NON LABORED BREATHING WITH 02 @ 1L/HR, TOLERATING WELL. ON TELE MONITOR WITH SINUS RHYTHM AT 83 BPM. IV ACCESS ON LAC GAUGE 20, PATENT, INTACT AND SALINE LOCKED. ALL DUE MEDS/TREATMENT GIVEN, NEEDS ATTENDED.SAFETY MEASURES MAINTAINED: BED LOCKED AND IN LOWEST POSITION,SIDE RAILS UP X 2. WILL ENDORSE TO PM SHIFT FOR CONTINUITY OF CARE.
[2023-02-11 20:00] VITALS: BP 119/73
--- NOTE | 2023-02-11 20:30 | NUR ---
INVESTIGATION DIVISION SERGEANT OPENING NOTES; RECEIVED PATIENT AWAKE IN BED, BED IN LOW POSITION, CALL LIGHTS WITHIN REACH, NO COMPLAIN OF PAIN AND DISCOMFORT AT THIS TIME, ON 02 INHALATION AT 2LPM SATURATING WELL, PATIENT IS A/O X4 ABLE TO MAKE NEEDS KNOWN, ON TELE MONITOR- SR-80, IV LINE AT RAC#18SL, PATIENT KEPT CLEAN AND DRY ALL NEEDS MET WILL CONTINUE TO MONITOR.
[2023-02-12] VITALS: BP 130/64
[2023-02-12] MEDS: methylPREDNISolone SOD SUCC 40 MG/ML VIAL IV SCH ×3 (02:33→17:02)
[2023-02-12 06:21] LABS: HEMATOCRIT 36 % (39-51); LYMPHOCYTES # (AUTO) 0.5 K/uL (0.8-4.8); LYMPHOCYTES % (AUTO) 5.9 % (20.0-44.0); MEAN CORPUSCULAR HGB CONC 33 g/dl (31.0-36.0); MEAN CORPUSCULAR VOLUME 82 fL (80-96); MONOCYTES # (AUTO) 0.2 K/uL (0.1-1.30); MONOCYTES % (AUTO) 1.6 % (2.0-12.0); NEUTROPHILS # (AUTO) 8.5 K/uL (1.8-8.9); NEUTROPHILS % (AUTO) 92.5 % (43.0-81.0); PLATELET COUNT (AUTO) 280 K/uL (150-450); WHITE BLOOD COUNT (AUTO) 9.2 K/uL (4.3-11.0)
[2023-02-12 06:31] LABS: ALANINE AMINOTRANSFERASE 23 U/L (12-78); ALBUMIN 3.2 g/dL (3.4-5.0); ALKALINE PHOSPHATASE 77 U/L (46-116); BILIRUBIN,TOTAL 0.3 mg/dL (0.2-1.0); CALCIUM, SERUM 9.2 mg/dL (8.5-10.1); CARBON DIOXIDE 24 mmol/L (21-32); CHLORIDE 107 mmol/L (98-107); CREATININE 0.9 mg/dL (0.6-1.3); GLUCOSE 161 mg/dL (74-106); POTASSIUM 4.1 mmol/L (3.5-5.1); SODIUM SERUM 138 mmol/L (136-145); TOTAL PROTEIN, SERUM 6.5 g/dL (6.4-8.2); UREA NITROGEN, BLOOD 33 mg/dL (7-18)
--- NOTE | 2023-02-12 06:42 | NUR ---
MS RN CLOSING NOTES: PATIENT AWAKE IN BED, BED IN LOW POSITION CALL LIGHTS WITHIN REACH, NO COMPLAIN OF PAIN AND DISCOMFORT AT THIS TIME ,ON O2 INHALATION AT 2LPM SATURATING WELL. NO SOB WAS OBSERVED, PATIENT IS A/O X4 ABLE TO MAKE NEEDS KNOWN, ON TELE [id number], IV LINE AT RAC#18SL, PATIENT KEPT CLEAN AND DRY ALL NEEDS MET, ENDORSE TO INCOMING SHIFT.
[2023-02-12 06:43] LABS: ASPARTATE AMINOTRANSFERASE 15 U/L (15-37)
[2023-02-12 07:30] VITALS: BP 137/75
[2023-02-12] MEDS: ALBUTEROL FS 2.5 MG/0.5 ML VIAL.NEB NEB SCH ×3 (07:34→19:56)
[2023-02-12] MEDS: IPRATROPIUM NEB FS 0.5 MG/2.5 ML AMPUL.NEB NEB SCH ×3 (07:34→19:56)
--- NOTE | 2023-02-12 07:40 | NUR ---
TAX SERVICES MANAGER OPENING NOTES; RECEIVED PATIENT AWAKE IN BED, A/OX4. ON 2L OF O2 VIA NC, NO S/S OF SOB AND ACUTE DISTRESS, DENIES PAIN AT THIS TIME. ON TELE MONITOR, CURRENT READING IS SR, HR=80. IV ACCESS AT RAC#18SL, PATENT AND INTACT. ALL SAFETY MEASURES IN PLACE, CALL LIGHT AND TABLE WITHIN EASY REACH, WILL CONT WITH PLAN OF CARE DURING SHIFT.
--- NOTE | 2023-02-12 07:50 | NUR ---
RT NOTE Patient took neb tx. off early due to coughing. Stating that the neb tx. is causing him to cough.
[2023-02-12] MEDS: DOXYCYCLINE HYCLATE (100 MG) 100 MG TABLET PO SCH ×2 (08:43→16:17)
[2023-02-12] MEDS: MULTIVITAMINS,THERAGRAN 1 UDTAB TABLET PO SCH (08:44)
[2023-02-12] MEDS: AMLODIPINE BESYLATE 5 MG TABLET PO SCH (08:47)
[2023-02-12] MEDS: ACIDOPHILUS/BULGARICUS 1 EACH TAB.CHEW PO SCH (08:47)
[2023-02-12] MEDS: DOCUSATE SODIUM 100 MG CAPSULE PO SCH (08:47)
[2023-02-12] MEDS: ENOXAPARIN SODIUM 40 MG/0.4 ML DISP.SYRIN SQ SCH (08:49)
[2023-02-12 12:00] VITALS: BP 122/72
[2023-02-12 16:00] VITALS: BP 120/72
[2023-02-12] MEDS ORDERED: GUAIFENESIN/D-METHORPHAN HB 5 ML UDC PO PRN (16:00)
--- NOTE | 2023-02-12 18:21 | NUR ---
ACCOUNTING TECHNICIAN CLOSING NOTES: PATIENT AWAKE IN BED, A/OX4, ABLE TO MAKE NEEDS KNOWN. ON 2L OF O2 VIA NC, NO S/S OF SOB AND ACUTE DISTRESS, DENIES PAIN AT THIS TIME. ON TELE MONITOR, CURRENT READING IS SR, HR=66. IV ACCESS AT RAC#18 SL, PATENT AND INTACT. URINAL EMPTIED, TOTAL OUTPUT= 500 CC. ALL NEEDS MET, DUE MEDS GIVEN. ALL SAFETY MEASURES IN PLACE, CALL LIGHT AND TABLE WITHIN EASY REACH, WILL ENDORSE TO PM SHIFT.
--- NOTE | 2023-02-12 19:30 | NUR ---
PROJECT MANAGEMENT ANALYST OPENING NOTES - RECEIVED PATIENT AWAKE, HOB IN SEMI-ELDRIDGE'S. A/O X4. NO RESPIRATORY DISTRESS AT THIS TIME, VERBALIZED HE STILL HAS ON AND OFF DYSPNEA AND COUGH. ON O2 AT 2LPM VIA NASAL CANULA. NO C/O PAIN OR DISCOMFORT. ON TELE MONITOR READING SINUS RHYTHM AT 83 BPM. HAS RIGHT FOREARM IV ACCESS #18G AND SALINE LOCKED. NO S/S OF INFILTRATION NOTED. SAFETY PRECAUTIONS IN PLACE: BED LOCKED AND IN LOW POSITION, SIDE RAILS UP X2, CALL LIGHT WITHIN REACH. WILL CONTINUE PLAN OF CARE.
[2023-02-12 20:00] VITALS: BP 132/76
--- NOTE | 2023-02-12 22:21 | NUR ---
NOTIFIED DR. PRINGLE RE: MEDS THAT WERE NOT RECONCILED. ORDERED TO START THE MEDS BELOW. NOTED AND CARRIED OUT. - FUROSEMIDE 40MG PO DAILY - [place] POTASSIUM 100MG PO DAILY - MONTELUKAST SODIUM 10MG PO DAILY
[2023-02-12] MEDS ORDERED: MONTELUKAST SODIUM (10MG) 10 MG TABLET PO SCH (22:30)
[2023-02-13] VITALS: BP 142/78
[2023-02-13] MEDS: IPRATROPIUM NEB FS 0.5 MG/2.5 ML AMPUL.NEB NEB SCH ×3 (00:59→14:09)
[2023-02-13] MEDS: ALBUTEROL FS 2.5 MG/0.5 ML VIAL.NEB NEB SCH ×3 (00:59→14:09)
[2023-02-13] MEDS: methylPREDNISolone SOD SUCC 40 MG/ML VIAL IV SCH ×2 (02:17→10:16)
--- NOTE | 2023-02-13 02:32 | NUR ---
ON AND OFF COUGH NOTED. PRN ROBITUSSIN GIVEN. WILL CONTINUE TO MONITOR. MRSA SWAB COLLECTED.
[2023-02-13 04:00] VITALS: BP 134/77
--- NOTE | 2023-02-13 06:06 | NUR ---
PATIENT REFUSED TO BE CHANGED, EXPLAINED IMPORTANCE X3, STILL REFUSED.
--- NOTE | 2023-02-13 06:37 | NUR ---
MS RN CLOSING NOTES - PATIENT RESTING IN BED, ABLE TO VERBALIZE NEEDS. KEPT HOB ELEVATED. NO C/O SOB OR , SATURATING WELL ON O2 AT 1LPM. PRODUCTIVE COUGH NOTED. AFEBRILE. RIGHT FOREARM IV ACCESS INTACT, PATENT AND FLUSHING. ALL DUE MEDS GIVEN AND NEEDS ATTENDED. SAFETY PRECAUTIONS MAINTAINED. WILL ENDORSE TO NEXT SHIFT RN FOR [facility].
--- NOTE | 2023-02-13 07:15 | NUR ---
ms rn received on bed,awake,alert,oriented x4,not in any form of distress, respirations even and unlabored,no sob noted, lungs are diminished,abdomen soft,positive bowel sounds, denies pain at this time, will monitor patient's condition.
[2023-02-13 08:00] VITALS: BP 130/72
[2023-02-13] MEDS ORDERED: FUROSEMIDE 40 MG TABLET PO SCH (09:00)
[2023-02-13] MEDS ORDERED: DOXY100C2 PO (09:00)
[2023-02-13] MEDS ORDERED: LOSARTAN POTASSIUM 50 MG TABLET PO SCH (09:00)
--- NOTE | 2023-02-13 09:00 | NUR ---
ms garcia breakfast served,due meds given,tolerated well.
--- NOTE | 2023-02-13 09:05 | NUR ---
ms rn was seen by scarlett araujo/aarti to be d/c to [facility] today, wrapper caser aware.
[2023-02-13] MEDS: MULTIVITAMINS,THERAGRAN 1 UDTAB TABLET PO SCH (09:13)
[2023-02-13] MEDS: AMLODIPINE BESYLATE 5 MG TABLET PO SCH (09:13)
[2023-02-13] MEDS: DOCUSATE SODIUM 100 MG CAPSULE PO SCH (09:13)
[2023-02-13] MEDS: ACIDOPHILUS/BULGARICUS 1 EACH TAB.CHEW PO SCH (09:13)
[2023-02-13] MEDS: DOXYCYCLINE HYCLATE (100 MG) 100 MG TABLET PO SCH (09:14)
[2023-02-13] MEDS: ENOXAPARIN SODIUM 40 MG/0.4 ML DISP.SYRIN SQ SCH (09:17)
[2023-02-13 16:06] VITALS: BP 156/66
== END 2023-02-13 16:30 | DRG 190 ==
LOC: ER 05:30 → TELE 10:41 → MED 02-13 06:32
PROVIDERS: ADMIT Internal Medicine; ATTEND Internal Medicine
DX: J44.1 Chronic obstructive pulmonary disease with (acute) exacerbation (principal); J96.01 Acute respiratory failure with hypoxia; L03.116 Cellulitis of left lower limb; J44.0 Chronic obstructive pulmonary disease with (acute) lower respiratory infection; I10 Essential (primary) hypertension; Z79.899 Other long term (current) drug therapy; R60.9 Edema, unspecified; J20.9 Acute bronchitis, unspecified
CPT/HCPCS: 36415; 71045-TC; 80048-TC; 80053-TC; 80076-TC; 83605-TC; 83880; 84484-TC; 85025-TC; 87040-TC; 87081-TC; 93970-TC; 94799-TC; C9803; G0378; J1650; J2920; J2930

== ENCOUNTER 2023-03-21 09:04 | Emergency (ER) | payer MEDICARE, OTHER ==
[~2023-03-21] VITALS: Ht 170.2 cm; Wt 65.8 kg
[~2023-03-21 09:04] MED LIST changes: -ALBU18HF2 INH; +BECL10.6 IH; +DOXY100C2 PO; +FLUT16SP16; +FURO-144 PO; +LOSA100T31 PO; +MONT10TA22 PO; -PRED20TA PO; -PRED50TA PO; +TIOT4MIS5 IH
[2023-03-21] MEDS ORDERED: ALBUTEROL FS 2.5 MG/3 ML VIAL.NEB NEB ONE (10:30)
[2023-03-21] MEDS ORDERED: IPRATROPIUM NEB FS 0.5 MG/2.5 ML AMPUL.NEB NEB ONE (10:30)
[2023-03-21] MEDS ORDERED: predniSONE 20 MG TABLET PO ONE (10:30)
[2023-03-21] MEDS ORDERED: ALBUTEROL FS 2.5 MG/3 ML VIAL.NEB ONE (10:33)
[2023-03-21] MEDS ORDERED: ALBUTEROL FS 2.5 MG/0.5 ML VIAL.NEB ONE (10:33)
[2023-03-21] MEDS ORDERED: predniSONE 20 MG TABLET ONE (11:00)
--- NOTE | 2023-03-21 11:00 | NUR ---
BIBRA60 FROM [facility] FOR COUGH/CONGESTION X 1 WEEK. PLACED IN BED, AAOX4, BREATHING EVEN AND UNLABORED SATURATING AT 96%RA
[2023-03-21] MEDS ORDERED: DOXY100T2 PO ×2 (12:57→12:59)
[2023-03-21] MEDS ORDERED: PRED20TA PO ×2 (12:57→12:59)
[2023-03-21] MEDS ORDERED: ALBU18HF2 INH ×2 (12:57→12:59)
--- NOTE | 2023-03-21 13:21 | NUR ---
CALLED [facility] FOR TRANSPORT ETA 45 MINS. PER LUTHER.
--- NOTE | 2023-03-21 14:00 | NUR ---
PATIENT PICKUP BY [facility] STAFF GOING BACK TO [facility] IN STABLE CONDITION.
[2023-03-21 14:12] VITALS: BP 110/80; TEMP 98.9
== END 2023-03-21 14:00 | disposition home or self-care (01) ==
LOC: ER 09:44
DX: J44.1 Chronic obstructive pulmonary disease with (acute) exacerbation (principal); I10 Essential (primary) hypertension; F17.200 Nicotine dependence, unspecified, uncomplicated; Z79.51 Long term (current) use of inhaled steroids; Z79.899 Other long term (current) drug therapy; Z20.822 Contact with and (suspected) exposure to COVID-19
CPT/HCPCS: 99284; 71045; 87426; 94640; J7512; C9803